=== PATIENT | female | born 1990 | race African-American/Black ===

== ENCOUNTER 2017-08-17 09:16 | Emergency (ER) | payer BC ==
[2017-08-17 09:36] LABS: #Eosinphils 0.1 thou/uL (0.0-0.7); #Lymphocytes 2.1 thou/uL (1.20-3.40); #Monocytes 0.2 thou/uL (0.11-0.59); #Neutrophils 2.2 thou/uL (1.40-6.50); %Basophils 0.1 % (0.0-1.0); %Eosinophils 1.8 % (0.0-10.0); %Lymphocytes 45.4 % (21.0-51.0); %Monocytes 5.2 % (0.0-10.0); %Neutrophils 47.5 % (42.0-75.0); Hemoglobin 13.3 g/dL (12.0-16.0); Mean Corpuscular HGB CONC 33.9 g/dL (32.0-36.0); Mean Corpuscular Hemoglobin 28.1 pg (27.0-31.0); Mean Corpuscular Volume 83.1 fl (81.0-99.0); Mean Platelet Volume 6.8 fL (7.4-10.4); Platelet Count 222 thou/uL (130-400); RBC Distribution Width 11.5 % (11.5-14.5); Red Blood Cell (RBC) Count 4.71 mill/uL (4.20-5.40); White Blood Cell (WBC) Count 4.6 thou/uL (4.8-10.8)
[2017-08-17 10:26] LABS: Bilirubin Negative (Negative); Blood, Urine Moderate (Negative); Clarity CLEAR (Clear); Glucose, Urine (Dipstick) Negative (Negative); Leukocyte Trace (Negative); Nitrite Negative (Negative); Protein, Urine (Dipstick) Negative (Neg-Trace); Specific Gravity, Urine 1.031 (1.002-1.036)
[2017-08-17 10:27] LABS: Bacteria/HPF None Seen HPF (None Seen); WBC/HPF 0-3 HPF (0-3)
[2017-08-17 10:28] LABS: Pathc Cast-AUWi Flag 6.25 (0-2.49)
--- NOTE | 2017-08-17 10:41 | ULT ---
PELVIC ULTRASOUND: HISTORY: A 5-week patient. Home test. Vaginal bleeding this morning. COMPARISON: None. TECHNIQUE: Transabdominal endovaginal imaging of the pelvis is performed. Ovaries are interrogated with daniel scale, color flow, Doppler imaging, and spectral waveform analysis . FINDINGS: Uterus is identified, measuring 3.7 x 3.9 x 6.7 cm. There are no myometrial masses. Endometrium has a homogeneous echotexture with a diameter of 0.5 cm. No evidence of a gestational sac, yolk sac, or pole. There is no free fluid. Ovaries have a normal echotexture. The right ovary measures 2.8 x 2.6 x 1.9 cm. The left ovary jose ures 2.2 x 1.9 x 1.3 cm. OVARIAN DOPLER: Vascular flow to both ovaries. IMPRESSION: No sonographic evidence of intrauterine gestation. The patient has serum beta HGC of 1732. Findings may represent an early intrauterine gestation versus a missed spontaneous versus sonographi jannette occult ectopic . Followup ultrasound with serial beta HGCs recommended. POS: [facility]
[2017-08-17 10:47] LABS: Hyaline Casts/LPF 0-3 HYALINE CAST LPF (0-3 Hyaline); Manual Microscopic Reviewed? No Path Casts Seen
== END 2017-08-17 10:50 | disposition home or self-care (01) ==
LOC: ERS 09:16
DX: O20.0 Threatened abortion (principal)
CPT/HCPCS: 36415; 76856; 81003; 81015; 84702; 85025; 86850; 86900; 86901; 87086

== ENCOUNTER 2018-05-13 01:53 | Emergency (ER) | payer BC ==
[2018-05-13 02:25] LABS: #Lymphocytes 1.2 thou/uL (1.20-3.40); #Monocytes 0.3 thou/uL (0.11-0.59); #Neutrophils 2.2 thou/uL (1.40-6.50); %Basophils 0.1 % (0.0-1.0); %Lymphocytes 32.9 % (21.0-51.0); %Monocytes 7.3 % (0.0-10.0); %Neutrophils 58.6 % (42.0-75.0); Hemoglobin 12.2 g/dL (12.0-16.0); Mean Corpuscular HGB CONC 32.4 g/dL (32.0-36.0); Mean Corpuscular Hemoglobin 26.9 pg (27.0-31.0); Mean Platelet Volume 7.5 fL (7.4-10.4); Platelet Count 213 thou/uL (130-400); RBC Distribution Width 11.9 % (11.5-14.5); Red Blood Cell (RBC) Count 4.52 mill/uL (4.20-5.40); White Blood Cell (WBC) Count 3.7 thou/uL (4.8-10.8)
[2018-05-13 02:52] LABS: ALT (SGPT) 9 U/L (8-55); AST (SGOT) 12 U/L (5-34); Albumin 3.8 g/dL (3.5-5.0); Alkaline Phosphatase 41 U/L (40-150); Anion Gap 11 mmol/L (10-20); BUN (Urea Nitrogen) 13 mg/dL (7.0-18.7); Bilirubin, Total 0.3 mg/dL (0.2-1.2); CK (CPK) 110 U/L (29-168); Calc. Creatinine Clearance 0 mL/min (70-130); Carbon Dioxide 24 mmol/L (22-29); Chloride 109 mmol/L (98-107); Estimated GFR-MDRD Greater than 90; Globulin 2.9 g/dL (2.4-3.5); Glucose 112 mg/dL (70-105); Potassium 3.7 mmol/L (3.5-5.1); Protein, Total 6.7 g/dL (6.0-8.3); Sodium 140 mmol/L (136-145)
--- NOTE | 2018-05-13 08:29 | RAD ---
SINGLE VIEW CHEST: HISTORY: Chest pain and shortness of breath. COMPARISON: None. FINDINGS: Single view of the chest show normal sized cardiomediastinal silhouette. There is no evidence of cons olidation, mass, or pleural effusion. The bones are unremarkable. IMPRESSION: No evidence of acute cardiopulmonary disease. POS: [facility]
== END 2018-05-13 04:30 | disposition home or self-care (01) ==
LOC: ERS 01:53
DX: R07.2 Precordial pain (principal)
CPT/HCPCS: 36415; 71045; 80053; 82550; 84484; 85025; 85379; 93005

== ENCOUNTER 2018-07-23 14:19 | Emergency (ER) | payer BC ==
[2018-07-23 15:21] LABS: #Lymphocytes 1.8 thou/uL (1.20-3.40); #Monocytes 0.2 thou/uL (0.11-0.59); #Neutrophils 3.8 thou/uL (1.40-6.50); %Basophils 0.3 % (0.0-1.0); %Eosinophils 0.5 % (0.0-10.0); %Lymphocytes 30.7 % (21.0-51.0); %Monocytes 3.9 % (0.0-10.0); %Neutrophils 64.7 % (42.0-75.0); Mean Corpuscular HGB CONC 32.7 g/dL (32.0-36.0); Mean Corpuscular Hemoglobin 27.8 pg (27.0-31.0); Mean Corpuscular Volume 85.2 fL (78.0-98.0); Mean Platelet Volume 7.2 fL (7.4-10.4); Platelet Count 288 thou/uL (130-400); Red Blood Cell (RBC) Count 4.66 mill/uL (4.20-5.40); White Blood Cell (WBC) Count 5.8 thou/uL (4.8-10.8)
== END 2018-07-23 18:02 | disposition left against medical advice (07) ==
LOC: ERS 14:19
DX: Z53.21 Procedure and treatment not carried out due to patient leaving prior to being seen by health care provider (principal)
CPT/HCPCS: 36415; 84702; 85025; 86900; 86901

== ENCOUNTER 2019-12-22 11:08 | Emergency (ER) | payer OTHER ==
[2019-12-22] MEDS ORDERED: Metoclopramide HCl 10 MG/2 ML VIAL ONE (11:37)
[2019-12-22] MEDS ORDERED: diphenhydrAMINE 50 MG/ML VIAL ONE (11:37)
[2019-12-22 12:00] LABS: #Lymphocytes 1.3 thou/uL (1.20-3.40); #Monocytes 0.3 thou/uL (0.11-0.59); #Neutrophils 4.1 thou/uL (1.40-6.50); %Basophils 0.6 % (0.0-1.0); %Eosinophils 0.4 % (0.0-10.0); %Lymphocytes 22.4 % (21.0-51.0); %Monocytes 5.4 % (0.0-10.0); %Neutrophils 71.2 % (42.0-75.0); Hemoglobin 11.4 g/dL (12.0-16.0); Mean Corpuscular HGB CONC 33.8 g/dL (32.0-36.0); Mean Corpuscular Hemoglobin 28.7 pg (27.0-31.0); Mean Corpuscular Volume 84.9 fL (78.0-98.0); Mean Platelet Volume 6.8 fL (7.4-10.4); Platelet Count 222 thou/uL (130-400); RBC Distribution Width 12.2 % (11.5-14.5); Red Blood Cell (RBC) Count 3.97 mill/uL (4.20-5.40); White Blood Cell (WBC) Count 5.8 thou/uL (4.8-10.8)
[2019-12-22 12:18] LABS: ALT (SGPT) 8 U/L (8-55); AST (SGOT) 10 U/L (5-34); Albumin 3.2 g/dL (3.5-5.0); Alkaline Phosphatase 40 U/L (40-110); Anion Gap 10 mmol/L (10-20); BUN (Urea Nitrogen) 6 mg/dL (7.0-18.7); Bilirubin, Total 0.2 mg/dL (0.2-1.2); Calc. Creatinine Clearance 0 mL/min (70-130); Calcium 8.3 mg/dL (7.8-10.44); Carbon Dioxide 24 mmol/L (22-29); Chloride 105 mmol/L (98-107); Estimated GFR-MDRD Greater than 90; Globulin 3.1 g/dL (2.4-3.5); Glucose 82 mg/dL (70-105); Potassium 3.6 mmol/L (3.5-5.1); Protein, Total 6.3 g/dL (6.0-8.3); Sodium 135 mmol/L (136-145)
== END 2019-12-22 12:52 | disposition home or self-care (01) ==
LOC: ERS 11:08
DX: O99.891 Other specified diseases and conditions complicating pregnancy (principal); R51.9 Headache, unspecified; R42 Dizziness and giddiness; Z3A.20 20 weeks gestation of pregnancy
CPT/HCPCS: 36416; 80053; 85025; 94760; 96365; 96375; J1200; J2765

== ENCOUNTER 2019-12-25 10:32 | Outpatient (CLI) | payer OTHER ==
--- NOTE | 2019-12-25 11:33 | ULT ---
OB ULTRASOUND: HISTORY: anatomy FINDINGS: A single live intrauterine gestation is seen with measurements corresponding to an estimated gestatio nal age of 20 weeks 5 daysand GIOVANA at 05/08/2020. The estimated weight measures 364 g or 13 ounces (54% by Hadlock criteria). biometry: BPD: 4.80 cm, 20 weeks 4 days HC: 18.0 cm, 20 weeks 4 days AC: 15.27 cm, 20 weeks 4 days FL: 3.39 cm, 20 weeks 5 days heart rate: 167bpm Placenta: Anterior Placenta previa: No AURA: 15.9cm Cervical length: 3.5cm A three-vessel cord, cord insertion, kidneys, urinary bladder, stomach, 4 chambered heart, late ral ventricles, cerebellum, spine, lips/nose, upper and lower extremities are visualized. No definite anomalies are seen. IMPRESSION: Single live intrauterine gestation of 20 weeks 5 daysestimated gestational age and GIOVANA at 05/08/2019
== END 2019-12-25 10:33 | disposition home or self-care (01) ==
LOC: BICULT 10:32
PROVIDERS: ATTEND Family Medicine
DX: O09.92 Supervision of high risk pregnancy, unspecified, second trimester (principal); Z3A.20 20 weeks gestation of pregnancy
CPT/HCPCS: 76805

== ENCOUNTER 2020-02-29 14:08 | Emergency (ER) | payer OTHER ==
[2020-02-29 15:19] LABS: #Lymphocytes 1.4 thou/uL (1.20-3.40); #Monocytes 0.4 thou/uL (0.11-0.59); #Neutrophils 5.2 thou/uL (1.40-6.50); %Basophils 0.1 % (0.0-1.0); %Eosinophils 0.4 % (0.0-10.0); %Lymphocytes 20.1 % (21.0-51.0); %Monocytes 6.3 % (0.0-10.0); %Neutrophils 73.2 % (42.0-75.0); Hemoglobin 10.8 g/dL (12.0-16.0); Mean Corpuscular Hemoglobin 28.2 pg (27.0-31.0); Mean Corpuscular Volume 83.1 fL (78.0-98.0); Mean Platelet Volume 7.5 fL (7.4-10.4); Platelet Count 208 thou/uL (130-400); RBC Distribution Width 11.5 % (11.5-14.5); Red Blood Cell (RBC) Count 3.81 mill/uL (4.20-5.40); White Blood Cell (WBC) Count 7.1 thou/uL (4.8-10.8)
[2020-02-29 15:41] LABS: ALT (SGPT) 12 U/L (8-55); AST (SGOT) 10 U/L (5-34); Albumin 2.9 g/dL (3.5-5.0); Alkaline Phosphatase 50 U/L (40-110); Anion Gap 14 mmol/L (10-20); BUN (Urea Nitrogen) 5 mg/dL (7.0-18.7); Bilirubin, Total Less than 0.2 mg/dL (0.2-1.2); Calc. Creatinine Clearance 0 mL/min (70-130); Calcium 8.2 mg/dL (7.8-10.44); Carbon Dioxide 19 mmol/L (22-29); Chloride 108 mmol/L (98-107); Globulin 3.2 g/dL (2.4-3.5); Glucose 75 mg/dL (70-105); Magnesium 1.7 mg/dL (1.6-2.6); Potassium 3.7 mmol/L (3.5-5.1); Protein, Total 6.1 g/dL (6.0-8.3); Sodium 137 mmol/L (136-145)
== END 2020-02-29 16:22 | disposition home or self-care (01) ==
LOC: ERS 14:08
DX: R55 Syncope and collapse (principal)
CPT/HCPCS: 36415; 80053; 83735; 85025; 93005; 94760; 96360

== ENCOUNTER 2020-04-14 03:00 | Day surgery (SDC) | payer OTHER ==
--- NOTE | 2020-04-14 08:56 | PRG ---
DATE OF SERVICE: 04/14/2020 PRIMARY OB: Dr. May. HISTORY OF PRESENT ILLNESS: The patient is a 30-year-old, G3, P2, female with an intrauterine at 36 weeks and 2 days, presenting with complaints of uterine contractions. She says this started yesterday at 11 in the evening and has progressed through the night. She reports that they are fairly close together. They are not very painful, but present. The patient denies any leakage of fluid or vaginal bleeding. She denies any headache, chest pain, shortness of breath, nausea, vomiting, diarrhea, constipation, hip problems, knee problems, or muscle weakness. She denies any new rashes. She denies again vaginal bleeding, leakage of fluid, urinary urgency or frequency. PAST MEDICAL HISTORY: Negative. PAST SURGICAL HISTORY: Negative. SOCIAL HISTORY: Denies drug, alcohol, or tobacco use. ALLERGIES: NO KNOWN DRUG ALLERGIES. MEDICATIONS: vitamins. PHYSICAL EXAMINATION: VITAL SIGNS: Blood pressure 120/79, heart rate 96, respiratory rate of 18, temperature 98.6. GENERAL: She appears to be in no acute distress. She is alert, oriented, cooperative, and pleasant to interact with. HEAD: Normocephalic and atraumatic. LUNGS: Clear to auscultation bilaterally. HEART: Regular rate and rhythm. ABDOMEN: Gravid, soft, nontender. EXTREMITIES: Nontender, nonedematous. : Cervical exam at presentation is 350, -1 station. heart tracing shows the fetus at the baseline in the 130s with moderate long-term variability, positive 15 x 15 accelerations, no decelerations. Tocometer showing lot of irritability with contractions about every 3 minutes. Not sure they are all felt by the patient. Recheck cervical exam is unchanged after 3 hours at 350, -2 station per nursing staff. ASSESSMENT AND PLAN: The patient is a 30-year-old, G3, P2 female with an intrauterine at 36 weeks and 2 days, presenting for concerns of labor. She has threatened labor, but no evidence of active labor. The patient is being discharged to home. She has instructions to follow up with Dr. May as scheduled and has been given labor precautions. Job ID: [id number]
== END 2020-04-14 06:34 | disposition home or self-care (01) ==
LOC: L&D/OP 03:00
PROVIDERS: ATTEND Family Medicine
DX: O47.03 False labor before 37 completed weeks of gestation, third trimester (principal); Z3A.36 36 weeks gestation of pregnancy

== ENCOUNTER 2024-03-21 09:33 | Emergency (ER) | payer MEDICAID, OTHER ==
[2024-03-21 10:26] LABS: Pregnancy Test - Urine (BHCG) Negative (Negative); Pregu Control Background? CLEAR/WHITE (CLR/WHITE); Pregu Control Bar Appear? YES (CONTROL BAR); Specific Gravity 1.017 (1.002-1.036)
[2024-03-21 10:36] LABS: Bacteria/HPF 1+ HPF (None Seen); Bilirubin Negative (Negative); Blood, Urine Trace (Negative); CAUTI Indications for Culture Dysuria,urgency,freq; Clarity Turbid (Clear); Glucose, Urine (Dipstick) Normal (Negative); Ketone, Urine Negative (Negative); Leukocyte 500 Leu/uL (Negative); Nitrite Negative (Negative); Protein, Urine (Dipstick) 10 mg/dL (Neg-Trace); Specific Gravity, Urine 1.017 (1.002-1.036); Squamous Epithelial 0-3 HPF (0-3); Urobilinogen Normal mg/dL (Less than 2); WBC/HPF Greater than 50 HPF (0-3)
[2024-03-21 10:37] LABS: Transitional Epithelial 0-3 HPF (None Seen); Urine Culture Reflex Yes Yes
== END 2024-03-21 10:56 | disposition home or self-care (01) ==
LOC: ERS 09:33
DX: N39.0 Urinary tract infection, site not specified (principal)
CPT/HCPCS: 81001; 81025; 87086; 99283

== ENCOUNTER 2025-02-26 16:52 | Emergency (ER) | payer MEDICAID, OTHER, SELFPAY | END 2025-02-26 18:30 | LOC: ERS 16:52 | DX: Z53.21 Procedure and treatment not carried out due to patient leaving prior to being seen by health care provider (principal) ==